=== PATIENT | male | born 1970 | race Caucasian/White ===

== ENCOUNTER 2020-03-15 21:47 | Emergency (ER) | payer BC ==
[~2020-03-15] VITALS: Ht 182.9 cm; Wt 99.8 kg
--- NOTE | 2020-03-16 22:42 | EKG ---
[facility] [address] [facility] [place] [address] Signed Normal sinus rhythm Inferior infarct , age undetermined Possible Anterior infarct , age undetermined Abnormal ECG No previous ECGs available Confirmed by ANATOLY MARINELLI MD ([id number]) on 03/16/2020 10:42:24 PM Electronically Signed By: ANATOLY MARINELLI MD 03/16/20 2242 PATIENT NAME: BONI BARROSO Electrocardiogram DATE OF : 72 PHYSICIAN: ANATOLY MARINELLI MD REPORT #: [id number] REPORT IS CONFIDENTIAL AND NOT TO BE RELEASED WITHOUT AUTHORIZATION
== END 2020-03-16 01:40 | disposition home or self-care (01) ==
LOC: ED 21:47
DX: R07.89 Other chest pain (principal); Z91.013 Allergy to seafood
CPT/HCPCS: 71045; 80053; 83735; 84484; 85025; 93005; 93010; 99285-25